=== PATIENT | female | born 1950 | race Caucasian/White ===

== ENCOUNTER 2019-01-04 14:37 | Emergency (ER) | payer MEDICARE, BC, SELFPAY ==
[2019-01-04 14:40] VITALS: BP 145/105; PULSE 116; RESP 20; TEMP 36.7; O2SAT 94
--- NOTE | 2019-01-04 14:44 | DI.RAD.S_ITS ---
PROCEDURE: XR CHEST 1V INDICATIONS: soa, weakness TECHNIQUE: One view of the chest was acquired. COMPARISON: Located Within [facility], , CHEST 2 VIEW, 11/28/2014, 10:57. FINDINGS: Surgical changes and devices: None. Lungs and pleura: Lungs are clear. No pleural effusions or pneumothorax. Mediastinum: Mediastinal contours appear normal. Heart size is enlarged. Bones and chest wall: No suspicious bony lesions. Overlying soft tissues appear unremarkable. IMPRESSION: No acute pulmonary pathology. Dictated by: Wayne Alonso M.D. on 01/04/2019 at 15:34 Approved by: Wayne Alonso M.D. on 01/04/2019 at 15:41
[2019-01-04 16:23] LABS: Add Manual Diff / Slide Review NO; Basophils Absolute Auto 100 /uL (0-100); Basophils Percent Auto 0.4 % (0-2); Eosinophils Absolute Auto 0 /uL (0-450); Eosinophils Percent Auto 0.3 % (2-4); Hematocrit 50.7 % (36-46); Hemoglobin 16.4 g/dL (12.0-16.0); Lymphocytes Absolute Auto 1500 /uL (1100-4500); Lymphocytes Percent Auto 11.2 % (25-40); Mean Corpuscular HGB Conc 32.4 % (30-36); Mean Corpuscular Hemoglobin 27.9 PG (26-34); Mean Corpuscular Volume 86.2 fL (80-100); Monocytes Absolute Auto 900 /uL (0-900); Monocytes Percent Auto 6.7 % (3-14); Neutrophils Absolute Auto 10600 /uL (1500-7000); Neutrophils Percent Auto 81.4 % (50-75); Platelet Count 103 X10^3/uL (150-400); Red Blood Cell Count 5.88 X10^6/uL (4.0-5.2); Red Cell Distribution Width 13.6 % (11.6-14.8); White Blood Cell Count 13.1 X10^3/uL (4.5-11.0)
--- NOTE | 2019-01-04 16:28 | ED.WEAKNESS ---
HPI - Weakness General Chief complaint: Weakness Stated complaint: WEAK Time Seen by Provider: 01/04/19 15:10 Source: patient and family Mode of arrival: ambulatory Limitations: no limitations History of Present Illness HPI Narrative: Patient comes emergency department complaining of shortness of breath and fatigue for the last couple of days. Neither she nor her family can specify whether this came on suddenly or gradually, although notes that the patient seems to have been ?slowing down? for the last week. Patient states that she self d/c'd her antihypertensives a year ago, and has not been to the doctor since. She cannot really give an answer as to why she did this. Patient denies any chest pain, fever, nausea, vomiting, leg swelling, or calf pain. she has no known personal or family history of cardiac issues or of DVT. Patient states she is not known to have any medical problems other than the high blood pressure, but that she does not really see a doctor regularly. Patient denies smoking or alcohol use. Related Data Home Medications Medication Instructions Recorded Confirmed No Known Home Medications 01/04/19 01/04/19 Allergies Allergy/AdvReac Type Severity Reaction Status Date / Time No Known Drug Allergies Allergy Verified 01/04/19 16:11 Review of Systems Constitutional Denies chills, Reports fatigue, Denies fever(s), Denies lethargy and Denies weakness Eyes Denies change in vision, Denies eye discharge, Denies irritation and Denies loss of vision ENT Ears, Nose, Mouth, and Throat: Denies change in voice, Denies neck pain and Denies sore throat Cardiovascular Denies chest pain, Denies irregular heart rhythm, Denies lightheadedness, Denies palpitations, Reports dyspnea, Reports dyspnea on exertion and Denies orthopnea Respiratory Denies cough, Reports dyspnea, Reports dyspnea on exertion and Denies wheezing Gastrointestinal Gastrointestinal: Denies abdominal pain, Denies change in bowel habits, Denies diarrhea, Denies nausea and Denies vomiting Genitourinary Denies hematuria, Denies flank pain, Denies urinary incontinence and Denies urinary urgency Musculoskeletal Denies neck pain Integumentary/Breasts Denies pruritus, Denies erythema, Denies rash and Denies wounds Neurologic Denies confusion, Denies loss of vision and Denies weakness Psychiatric Denies anxiety, Denies confusion, Denies depression, Denies homicidal ideation and Denies suicidal ideation Endocrine Reports fatigue and Denies palpitations Hematologic/Lymphatic Denies easy bruising Allergic/Immunologic Denies wheezing [facility] Medical History (Updated 01/04/19 @ 20:51 by Denise Solis MD) Uncontrolled hypertension (Acute) Surgical History No pertinent past surgical history (Acute) Social History Smoking Status: Never smoker Social History Smoking Status: Never smoker Exam Initial Vital Signs Initial Vital Signs: Vital Signs Temperature 98.1 F 01/04/19 14:40 Pulse Rate 116 H 01/04/19 14:40 Respiratory Rate 20 01/04/19 14:40 Blood Pressure 145/105 H 01/04/19 14:40 Pulse Oximetry 94 01/04/19 14:40 Const General: cooperative and well developed Nutritional Appearance: well nourished Orientation: alert, awake, oriented x3 and not confused [facility] Head: normocephalic and atraumatic Ears: external ears normal Nose: external nose normal and No nasal discharge Face and sinus: face symmetric and No dry mucous membranes Mouth: oral mucosae normal and moist mucous membranes Teeth and gingiva: dentition normal Eyes General: appearance normal, both eyes and all related structures Eyelids: eyelids normal Conjunctivae: conjunctivae normal Sclera: sclerae normal Pupils: PERRL EOM: EOM intact bilaterally Neck Neck: normal visual inspection, trachea midline, No lymphadenopathy, No midline deformity and No JVD Lymphatic: No lymphedema Chest Chest: normal inspection of the chest Resp Effort & Inspection: normal respiratory effort, able to speak in complete sentences, no respiratory distress and no use of accessory muscles Auscultation: clear to auscultation bilaterally, no rales, no rhonchi and no wheezes Cardio Rate: tachycardic Rhythm: regular rhythm Heart Sounds: no click, no gallops, no murmurs and no rubs Pulses: normal peripheral pulses GI Inspection: non-distended Palpation: soft, no hepatosplenomegaly, No guarding, No pulsatile mass and No tender Auscultation: normal bowel sounds Back/Spine/Pelvis Back: No CVA tenderness Cervical Spine: cervical ROM normal and No pain with cervical ROM Thoracic/Lumbar Spine: thoracic and lumbar spine normal to inspection Skin General: no rashes or lesions noted, No jaundice and No petechiae Neuro General: alert, oriented x3, gait normal and no focal motor deficits Speech: speech normal Extrem General: full ROM, no pedal edema and no calf tenderness Psych Appearance: well kempt Mental Status: mental status grossly normal Attitude: cooperative Thought Content: normal and suicidality Judgment: judgment good Course Course Narrative: I was concerned about the patient's degree of dyspnea and her tachycardia, especially since when the patient ambulated to the bathroom here in the emergency department she was extremely dyspneic. Patient was worked up extensively with laboratory studies, EKG, and chest x-ray. D-dimer was found to be over 3000, and I did order a CTA of thorax. This showed a saddle embolism involving the left and right pulmonary arteries, and also showed a potential, circumesophageal mass. I did go and speak with the patient and her family regarding the findings, and the seriousness of them. I explained to the patient that she would need to be transferred to a facility with an interventional specialty team that can retrieve the clot. The patient expressed understanding, as did her . I ordered an IV bolus of heparin, as well as a heparin drip, and began the process of attempting to arrange transfer emergently. The patient, other than mild tachycardia, had been stable, and was without hypotension in the emergency department, and in fact, had significantly elevated blood pressures in the 150s to 160s over 110's. Her oxygen saturations had been in the mid 90s on room air, and given all of the above, I did not feel that emergent tPA was indicated at this time. Nursing staff did summon me to the patient's room, stating that as the patient was beginning to get her heparin, she had suddenly began to complain of severe shortness of breath, and appeared to have labored respirations. I did immediately go to the patient's room, where I found her to have labored respirations and appear is mildly anxious. Heart was still tachycardic and lungs were clear, but as I was reexamined the patient, she did lose consciousness and respirations became agonal as heart rate began to become bradycardic. A code blue was called and patient was found to be in PEA. CPR was initiated at the calling of the code blue. TPA was emergently ordered at standard dosing when the pharmacist arrived, and patient was also given a mg of epinephrine. TPA was pushed emergently upon its arrival. Patient had been bagged for respirations initially, and preparations were being made to intubate, when the patient regained her pulse, and did also regain consciousness. She was not lucid, but was able to speak a little. Patient's heart rate was tachycardic in the 150s after epinephrine, and lungs were clear. No new murmur was appreciated. patient was making good respiratory effort on her own, but she was found to remain cyanotic, and I felt she should still be intubated. She was given 18 mg of etomidate, as well as 100 mg of succinylcholine, and was intubated with a 7.5 ET tube by the anesthesiologist, who had arrived. At that point in time Dr. Stovall, personal protection specialist from [facility], did call back and I discussed the case with him. He affirmed appropriateness of management and plan, did accept the patient in transfer, but as we were finishing discussing the case, the patient did begin to become bradycardic again, and went back into PEA. Resuscitation was restarted at 7:06 p.m., with CPR and IV epinephrine. The patient had become hypotensive just before this, and the placement manager had specified his preference for Levophed. This was started during the resuscitation attempt, and patient did receive IV epinephrine 1 mg every 2 minutes. Patient continued to be in PEA throughout the entire resuscitation attempt. She was cyanotic and while ultrasound initially showed some cardiac activity, repeat ultrasound well into the resuscitation attempts showed no further cardiac movement. The family arrived and did observe the final resuscitation attempts. I did explain to them the grave condition the patient was in, and the fact that extensive resuscitation attempts, including emergent dissolution of the clot, had been unsuccessful. After Levophed infusion, emergent tPa, ongoing CPR, and multiple doses of epinephrine, the time of was pronounced at 7:24 p.m. Orders Ordered: ED Orders 01/04/19 14:44 Chest [XR chest 1V] Stat EKG-12 Lead Stat 01/04/19 16:05 Complete Blood Count AUTO DIFF Stat Comprehensive Metabolic Panel Stat D Dimer Stat Troponin & CK Cardiac Panel Stat 01/04/19 16:19 Urine Culture Stat Urine Microscopic Stat 01/04/19 17:27 CT angio chest PE protocol Stat Heparin Sodium/Dextrose (Heparin Drip) 25,000 unit in 500 mls @ 28.576 mls/hr IV CONT MERARY; Protocol Last Admin: 01/04/19 18:31 Dose: 18 units/kg/hr, 28.576 mls/hr Discontinued Medications Al Hydrox/Mg Hydrox/Simethicone 20 ml/ Lidocaine HCl 15 ml 0 ml PO NOW ONE Stop: 01/04/19 18:26 Heparin Sodium (Porcine) (Heparin) 6,400 unit 80 unit/kg (6400 unit) IV NOW ONE Stop: 01/04/19 18:17 Last Admin: 01/04/19 18:34 Dose: 6,400 unit Sodium Chloride (Normal Saline 0.9%) 1,000 mls @ 1,000 mls/hr IV BOLUS ONE Stop: 01/04/19 17:27 Last Admin: 01/04/19 17:18 Dose: 1,000 mls/hr Morphine Sulfate (Morphine) 4 mg IV NOW ONE Stop: 01/04/19 18:26 Vital Signs - 8 hr 01/04/19 14:40 01/04/19 16:30 Temperature 98.1 F Pulse Rate 116 H 111 H Respiratory Rate 20 22 Blood Pressure 145/105 H Blood Pressure [Right Arm] 161/124 H Pulse Oximetry 94 95 MDM - Weakness Medical Records Attestation: I reviewed the patient's medical records. Lab Data Attestation: I reviewed the patient's lab results. Result diagrams: 01/04/19 16:05 01/04/19 16:05 Lab Results 01/04/19 01/04/19 01/04/19 Range/Units 16:05 16:05 16:05 WBC 13.1 H (4.5-11.0) X10^3/uL RBC 5.88 H (4.0-5.2) X10^6/uL Hgb 16.4 H (12.0-16.0) g/dL Hct 50.7 H (36-46) % MCV 86.2 (80-100) fL MCH 27.9 (26-34) PG MCHC 32.4 (30-36) % RDW 13.6 (11.6-14.8) % Plt Count 103 L (150-400) X10^3/uL Neut % (Auto) 81.4 H (50-75) % Lymph % (Auto) 11.2 L (25-40) % Stephens % (Auto) 6.7 (3-14) % Eos % (Auto) 0.3 L (2-4) % Baso % (Auto) 0.4 (0-2) % Neut # (Auto) 77294 H (0771-5678) /uL Lymph # (Auto) 1500 (8839-1259) /uL Stephens # (Auto) 900 (0-900) /uL Eos # (Auto) 0 (0-450) /uL Baso # (Auto) 100 (0-100) /uL D-Dimer 3229 H (<230) ng/mL Sodium 137 (137-145) mmol/L Potassium 3.8 (3.4-5.1) mmol/L Chloride 100 (98-107) mmol/L Carbon Dioxide 23 (22-32) mmol/L BUN 31 H (7-17) mg/dL Creatinine 0.90 (0.52-1.04) mg/dL Estimated GFR > 60.0 (>60) mL/min BUN/Creatinine Ratio 34.4 H (6-22) Glucose 326 H (80-110) mg/dL Calcium 9.7 (8.4-10.2) mg/dL Total Bilirubin 1.1 (0.2-1.3) mg/dL AST 26 (14-36) IU/L ALT 49 (9-52) IU/L Alkaline Phosphatase 173 H (38-126) U/L Total Creatine Kinase 47 (30-135) U/L CK-MB (CK-2) TNP CK-MB (CK-2) Rel Index TNP Troponin I 0.078 H (0.01-0.034) ng/mL Total Protein 7.8 (6.3-8.2) g/dL Albumin 4.5 (3.5-5.0) g/dL Globulin 3.3 (1.7-4.1) g/dL Albumin/Globulin Ratio 1.4 (1.0-2.8) Urine RBC (0-5/HPF) Urine WBC (0-5/HPF) Ur Squamous Epith Cells (0-5/HPF) Ur Transition Epith Cell (0-5/HPF) Urine Bacteria (None) Hyaline Casts (None) Urine Mucus (Negative) Ur Culture Indicated? 01/04/19 Range/Units 16:19 WBC (4.5-11.0) X10^3/uL RBC (4.0-5.2) X10^6/uL Hgb (12.0-16.0) g/dL Hct (36-46) % MCV (80-100) fL MCH (26-34) PG MCHC (30-36) % RDW (11.6-14.8) % Plt Count (150-400) X10^3/uL Neut % (Auto) (50-75) % Lymph % (Auto) (25-40) % Stephens % (Auto) (3-14) % Eos % (Auto) (2-4) % Baso % (Auto) (0-2) % Neut # (Auto) (6027-5550) /uL Lymph # (Auto) (1431-2200) /uL Stephens # (Auto) (0-900) /uL Eos # (Auto) (0-450) /uL Baso # (Auto) (0-100) /uL D-Dimer (<230) ng/mL Sodium (137-145) mmol/L Potassium (3.4-5.1) mmol/L Chloride (98-107) mmol/L Carbon Dioxide (22-32) mmol/L BUN (7-17) mg/dL Creatinine (0.52-1.04) mg/dL Estimated GFR (>60) mL/min BUN/Creatinine Ratio (6-22) Glucose (80-110) mg/dL Calcium (8.4-10.2) mg/dL Total Bilirubin (0.2-1.3) mg/dL AST (14-36) IU/L ALT (9-52) IU/L Alkaline Phosphatase (38-126) U/L Total Creatine Kinase (30-135) U/L CK-MB (CK-2) CK-MB (CK-2) Rel Index Troponin I (0.01-0.034) ng/mL Total Protein (6.3-8.2) g/dL Albumin (3.5-5.0) g/dL Globulin (1.7-4.1) g/dL Albumin/Globulin Ratio (1.0-2.8) Urine RBC 0-1/hpf (0-5/HPF) Urine WBC 10-30/hpf H (0-5/HPF) Ur Squamous Epith Cells 1-5 /hpf (0-5/HPF) Ur Transition Epith Cell 0-1/hpf (0-5/HPF) Urine Bacteria Many (>30) H (None) Hyaline Casts 1-5/lpf (None) Urine Mucus 2+ H (Negative) Ur Culture Indicated? Specimen cultured Imaging Data CT scan - chest: Radiologist's impression: PROCEDURE: CT ANGIO CHEST PE PROTOCOL INDICATIONS: dyspnea, d-dimer >3000 TECHNIQUE: After the administration of intravenous contrast, 2 mm thick sections acquired from the pulmonary apices to the posterior costophrenic angles. 3-dimensional maximum intensity projection (MIP) coronal and sagittal reformats were then acquired through the thorax. For radiation dose reduction, the following was used: automated exposure control, adjustment of mA and/or kV according to patient size. COMPARISON: None. FINDINGS: Image quality: Excellent. Pulmonary arteries: Extensive pulmonary embolus including a saddle embolism and right and left main pulmonary arteries as well as clot extending into right upper, right lower, left upper, and left lower lobe branches. Pulmonary outflow tract is slightly enlarged at 3.1 cm. Lungs and pleura: Lungs are clear. No pleural effusions or pneumothorax. Central and peripheral airways are patent. Mediastinum: The right cardiac chambers are dilated and there is mild intraventricular septal bowing. Mild left ventricular wall hypertrophy. No pericardial effusion. No bulky mediastinal adenopathy. At the level of the aortic arch, there is an expansile soft tissue mass measuring about 3.3 x 2.4 cm encompassing the esophagus. No proximal or distal esophageal dilatation. There is a moderate size esophageal hiatal hernia. A esophageal wall distally is also thickened. Bones and chest wall: No suspicious bony lesions. Ribs and thoracic spine appear intact throughout. Thyroid gland is normal. No axillary or supraclavicular adenopathy. Abdomen: Visualized upper abdominal solid organs appear normal in the early arterial phase of enhancement. IMPRESSION: 1. Extensive pulmonary emboli including a saddle embolus and bilateral main pulmonary artery emboli. 2. There is right heart strain. 3. Questionable proximal to mid-esophageal wall mass. 4. Moderate size hiatal hernia with questionable distal esophageal mass. 5. Findings discussed with Dr. Solis in the emergency room. Dictated by: Cathy Aponte M.D. on 01/04/2019 at 17:52 Approved by: Cathy Aponte M.D. on 01/04/2019 at 18:09 Chest x-ray: Radiologist's impression: [address] [id number] XRay Report Signed Patient: Gerda Roman LMR#: [id number] : 1Acct:[id number] Age/Sex: 68 / FDate of Service: 01/04/19 Loc: ED Accession Number: [id number] Procedure: XR chest 1V Ordering Provider: Denise Solis MD PROCEDURE: XR CHEST 1V INDICATIONS: soa, weakness TECHNIQUE: One view of the chest was acquired. COMPARISON: [facility], CHEST 2 VIEW, 11/28/2014, 10:57. FINDINGS: Surgical changes and devices: None. Lungs and pleura: Lungs are clear. No pleural effusions or pneumothorax. Mediastinum: Mediastinal contours appear normal. Heart size is enlarged. Bones and chest wall: No suspicious bony lesions. Overlying soft tissues appear unremarkable. IMPRESSION: No acute pulmonary pathology. Dictated by: Wayne Alonso M.D. on 01/04/2019 at 15:34 Approved by: Wayne Alonso M.D. on 01/04/2019 at 15:41 ECG Data Attestation: I personally reviewed and interpreted this ECG as follows: (See below) Interpretation: Twelve lead EKG performed January 04, 2019 at 2:52 p.m., as follows: Regular ventricular rhythm with a rate of 119 beats per minute Peer interval 161 milliseconds QRS duration 100 millisecond QTC interval [address] T wave changes Interpretation: Sinus tachycardia; possible left atrial enlargement; inferior myocardial infarction, probably old; abnormal EKG as interpreted by ED MD. Critical Care Time Critical Care Time: Yes Total Critical Care Time: 100 Attestation: Critical care time was necessary, due to grave condition of the patient and high probability of imminent deterioration and . Critical care time includes interviewing the patient, examining the patient, discussions with family members, discussions with consultants, ordering and reviewing laboratory studies, ordering and reviewing radiologic studies, ordering and reviewing EKG, assessing cardiac output and pulse oximetry repeatedly, resuscitation attempts, monitor interpretation, ordering interventions and re-evaluating the patient, and documentation. Critical care time is exclusive of separately billable procedures. Discharge Plan Departure Patient Disposition: Clinical Impression: Cardiopulmonary resuscitation (CPR)-only resuscitation status, Uncontrolled hypertension Saddle embolism of pulmonary artery Qualifiers: Chronicity: acute Acute cor pulmonale presence: with acute cor pulmonale Qualified Code(s): I26.02 - Saddle embolus of pulmonary artery with acute cor pulmonale
[2019-01-04 16:30] VITALS: BP 161/124; PULSE 111; RESP 22; O2SAT 95
[2019-01-04 16:30] LABS: Alanine Aminotransferase 49 IU/L (9-52); Albumin 4.5 g/dL (3.5-5.0); Albumin Globulin Ratio 1.4 (1.0-2.8); Alkaline Phosphatase 173 U/L (38-126); Aspartate Aminotransferase 26 IU/L (14-36); BUN Creatinine Ratio 34.4 (6-22); Bilirubin Total 1.1 mg/dL (0.2-1.3); Blood Urea Nitrogen 31 mg/dL (7-17); Calcium 9.7 mg/dL (8.4-10.2); Carbon Dioxide 23 mmol/L (22-32); Chloride 100 mmol/L (98-107); Creatine Kinase 47 U/L (30-135); Estimated Glomerular Filt Rate > 60.0 mL/min (>60); Globulin 3.3 g/dL (1.7-4.1); Glucose 326 mg/dL (80-110); HEMOLYSIS < 15 (0-50); Potassium 3.8 mmol/L (3.4-5.1); Sodium 137 mmol/L (137-145); Total Protein 7.8 g/dL (6.3-8.2)
[2019-01-04 16:34] LABS: D Dimer 3229 ng/mL (<230)
[2019-01-04 16:41] LABS: Troponin I 0.078 ng/mL (0.01-0.034)
--- NOTE | 2019-01-04 16:49 | ED_ITS ---
HPI - Weakness General Chief complaint: Weakness Stated complaint: WEAK Time Seen by Provider: 01/04/19 15:10 Source: patient and family Mode of arrival: ambulatory Limitations: no limitations History of Present Illness HPI Narrative: Patient comes emergency department complaining of shortness of breath and fatigue for the last couple of days. Neither she nor her family can specify whether this came on suddenly or gradually, although notes that the patient seems to have been ?slowing down? for the last week. Patient states that she self d/c'd her antihypertensives a year ago, and has not been to the doctor since. She cannot really give an answer as to why she did this. Patient denies any chest pain, fever, nausea, vomiting, leg swelling, or calf pain. she has no known personal or family history of cardiac issues or of DVT. Patient states she is not known to have any medical problems other than the high blood pressure, but that she does not really see a doctor regularly. Patient denies smoking or alcohol use. Related Data Home Medications Medication Instructions Recorded Confirmed No Known Home Medications 01/04/19 01/04/19 Allergies Allergy/AdvReac Type Severity Reaction Status Date / Time No Known Drug Allergies Allergy Verified 01/04/19 16:11 Review of Systems Constitutional Denies chills, Reports fatigue, Denies fever(s), Denies lethargy and Denies weakness Eyes Denies change in vision, Denies eye discharge, Denies irritation and Denies loss of vision ENT Ears, Nose, Mouth, and Throat: Denies change in voice, Denies neck pain and Denies sore throat Cardiovascular Denies chest pain, Denies irregular heart rhythm, Denies lightheadedness, Denies palpitations, Reports dyspnea, Reports dyspnea on exertion and Denies orthopnea Respiratory Denies cough, Reports dyspnea, Reports dyspnea on exertion and Denies wheezing Gastrointestinal Gastrointestinal: Denies abdominal pain, Denies change in bowel habits, Denies d iarrhea, Denies nausea and Denies vomiting Genitourinary Denies hematuria, Denies flank pain, Denies urinary incontinence and Denies urinary urgency Musculoskeletal Denies neck pain Integumentary/Breasts Denies pruritus, Denies erythema, Denies rash and Denies wounds Neurologic Denies confusion, Denies loss of vision and Denies weakness Psychiatric Denies anxiety, Denies confusion, Denies depression, Denies homicidal ideation and Denies suicidal ideation Endocrine Reports fatigue and Denies palpitations Hematologic/Lymphatic Denies easy bruising Allergic/Immunologic Denies wheezing [facility] Medical History (Updated 01/04/19 @ 20:51 by Denise Solis MD) Uncontrolled hypertension (Acute) Surgical History No pertinent past surgical history (Acute) Social History Smoking Status: Never smoker Social History Smoking Status: Never smoker Exam Initial Vital Signs Initial Vital Signs: Vital Signs Temperature 98.1 F 01/04/19 14:40 Pulse Rate 116 H 01/04/19 14:40 Respiratory Rate 20 01/04/19 14:40 Blood Pressure 145/105 H 01/04/19 14:40 Pulse Oximetry 94 01/04/19 14:40 Const General: cooperative and well developed Nutritional Appearance: well nourished Orientation: alert, awake, oriented x3 and not confused [facility] Head: normocephalic and atraumatic Ears: external ears normal Nose: external nose normal and No nasal discharge Face and sinus: face symmetric and No dry mucous membranes Mouth: oral mucosae normal and moist mucous membranes Teeth and gingiva: dentition normal Eyes General: appearance normal, both eyes and all related structures Eyelids: eyelids normal Conjunctivae: conjunctivae normal Sclera: sclerae normal Pupils: PERRL EOM: EOM intact bilaterally Neck Neck: normal visual inspection, trachea midline, No lymphadenopathy, No midline deformity and No JVD Lymphatic: No lymphedema Chest Chest: normal inspection of the chest Resp Effort & Inspection: normal respiratory effort, able to speak in complete sentences, no respiratory distress and no use of accessory muscles Auscultation: clear to auscultation bilaterally, no rales, no rhonchi and no wheezes Cardio Rate: tachycardic Rhythm: regular rhythm Heart Sounds: no click, no gallops, no murmurs and no rubs Pulses: normal peripheral pulses GI Inspection: non-distended Palpation: soft, no hepatosplenomegaly, No guarding, No pulsatile mass and No tender Auscultation: normal bowel sounds Back/Spine/Pelvis Back: No CVA tenderness Cervical Spine: cervical ROM normal and No pain with cervical ROM Thoracic/Lumbar Spine: thoracic and lumbar spine normal to inspection Skin General: no rashes or lesions noted, No jaundice and No petechiae Neuro General: alert, oriented x3, gait normal and no focal motor deficits Speech: speech normal Extrem General: full ROM, no pedal edema and no calf tenderness Psych Appearance: well kempt Mental Status: mental status grossly normal Attitude: cooperative Thought Content: normal and suicidality Judgment: judgment good Course Course Narrative: I was concerned about the patient's degree of dyspnea and her tachycardia, especially since when the patient ambulated to the bathroom here in the emergency department she was extremely dyspneic. Patient was worked up extensively with laboratory studies, EKG, and chest x-ray. D-dimer was found to be over 3000, and I did order a CTA of thorax. This showed a saddle embolism involving the left and right pulmonary arteries, and also showed a potential, circumesophageal mass. I did go and speak with the patient and her family regarding the findings, and the seriousness of them. I explained to the patient that she would need to be transferred to a facility with an interventional specialty team that can retrieve the clot. The patient expressed understanding, as did her . I ordered an IV bolus of heparin, as well as a heparin drip, and began the process of attempting to arrange transfer emergently. The patient, other than mild tachycardia, had been stable, and was without hypotension in the emergency department, and in fact, had significantly elevated blood pressures in the 150s to 160s over 110's. Her oxygen saturations had been in the mid 90s on room air, and given all of the above, I did not feel that emergent tPA was indicated at this time. Nursing staff did summon me to the patient's room, stating that as the patient was beginning to get her heparin, she had suddenly began to complain of severe shortness of breath, and appeared to have labored respirations. I did immediately go to the patient's room, where I found her to have labored respirations and appear is mildly anxious. Heart was still tachycardic and lungs were clear, but as I was reexamined the patient, she did lose consciousness and respirations became agonal as heart rate began to become bradycardic. A code blue was called and patient was found to be in PEA. CPR was initiated at the calling of the code blue. TPA was emergently ordered at standard dosing when the pharmacist arrived, and patient was also given a mg of epinephrine. TPA was pushed emergently upon its arrival. Patient had been bagged for respirations initially, and preparations were being made to intubate, when the patient regained her pulse, and did also regain consciousness. She was not lucid, but was able to speak a little. Patient's heart rate was tachycardic in the 150s after epinephrine, and lungs were clear. No new murmur was appreciated. patient was making good respiratory effort on her own, but she was found to remain cyanotic, and I felt she should still be intubated. She was given 18 mg of etomidate, as well as 100 mg of succinylcholine, and was intubated with a 7.5 ET tube by the anesthesiologist, who had arrived. At that point in time Dr. Stovall, neuro psych sales specialist from [facility], did call back and I discussed the case with him. He affirmed appropriateness of management and plan, did accept the patient in transfer, but as we were finishing discussing the case, the patient did begin to become bradycardic again, and went back into PEA. Resuscitation was restarted at 7:06 p.m., with CPR and IV epinephrine. The patient had become hypotensive just before this, and the mushroom growing supervisor had specified his preference for Levophed. This was started during the resuscitation attempt, and patient did receive IV epinephrine 1 mg every 2 minutes. Patient continued to be in PEA throughout the entire resuscitation attempt. She was cyanotic and while ultrasound initially showed some cardiac activity, repeat ultrasound well into the resuscitation attempts showed no further cardiac movement. The family arrived and did observe the final resuscitation attempts. I did explain to them the grave condition the patient was in, and the fact that extensive resuscitation attempts, including emergent dissolution of the clot, had been unsuccessful. After Levophed infusion, emergent tPa, ongoing CPR, and multiple doses of epinephrine, the time of was pronounced at 7:24 p.m. Orders Ordered: ED Orders 01/04/19 14:44 Chest [XR chest 1V] Stat EKG-12 Lead Stat 01/04/19 16:05 Complete Blood Count AUTO DIFF Stat Comprehensive Metabolic Panel Stat D Dimer Stat Troponin & CK Cardiac Panel Stat 01/04/19 16:19 Urine Culture Stat Urine Microscopic Stat 01/04/19 17:27 CT angio chest PE protocol Stat Heparin Sodium/Dextrose (Heparin Drip) 25,000 unit in 500 mls @ 28.576 mls/hr IV CONT MERARY; Protocol Last Admin: 01/04/19 18:31 Dose: 18 units/kg/hr, 28.576 mls/hr Discontinued Medications Al Hydrox/Mg Hydrox/Simethicone 20 ml/ Lidocaine HCl 15 ml 0 ml PO NOW ONE Stop: 01/04/19 18:26 Heparin Sodium (Porcine) (Heparin) 6,400 unit 80 unit/kg (6400 unit) IV NOW ONE Stop: 01/04/19 18:17 Last Admin: 01/04/19 18:34 Dose: 6,400 unit Sodium Chloride (Normal Saline 0.9%) 1,000 mls @ 1,000 mls/hr IV BOLUS ONE Stop: 01/04/19 17:27 Last Admin: 01/04/19 17:18 Dose: 1,000 mls/hr Morphine Sulfate (Morphine) 4 mg IV NOW ONE Stop: 01/04/19 18:26 Vital Signs - 8 hr 01/04/19 14:40 01/04/19 16:30 Temperature 98.1 F Pulse Rate 116 H 111 H Respiratory Rate 20 22 Blood Pressure 145/105 H Blood Pressure [Right Arm] 161/124 H Pulse Oximetry 94 95 MDM - Weakness Medical Records Attestation: I reviewed the patient's medical records. Lab Data Attestation: I reviewed the patient's lab results. Result diagrams: 01/04/19 16:05 01/04/19 16:05 Lab Results 01/04/19 01/04/19 01/04/19 Range/Units 16:05 16:05 16:05 WBC 13.1 H (4.5-11.0) X10^3/uL RBC 5.88 H (4.0-5.2) X10^6/uL Hgb 16.4 H (12.0-16.0) g/dL Hct 50.7 H (36-46) % MCV 86.2 (80-100) fL MCH 27.9 (26-34) PG MCHC 32.4 (30-36) % RDW 13.6 (11.6-14.8) % Plt Count 103 L (150-400) X10^3/uL Neut % (Auto) 81.4 H (50-75) % Lymph % (Auto) 11.2 L (25-40) % [place] % (Auto) 6.7 (3-14) % Eos % (Auto) 0.3 L (2-4) % Baso % (Auto) 0.4 (0-2) % Neut # (Auto) 28571 H (6031-8887) /uL Lymph # (Auto) 1500 (2635-7275) /uL [place] # (Auto) 900 (0-900) /uL Eos # (Auto) 0 (0-450) /uL Baso # (Auto) 100 (0-100) /uL D-Dimer 3229 H (<230) ng/mL Sodium 137 (137-145) mmol/L Potassium 3.8 (3.4-5.1) mmol/L Chloride 100 (98-107) mmol/L Carbon Dioxide 23 (22-32) mmol/L BUN 31 H (7-17) mg/dL Creatinine 0.90 (0.52-1.04) mg/dL Estimated GFR > 60.0 (>60) mL/min BUN/Creatinine Ratio 34.4 H (6-22) Glucose 326 H (80-110) mg/dL Calcium 9.7 (8.4-10.2) mg/dL Total Bilirubin 1.1 (0.2-1.3) mg/dL AST 26 (14-36) IU/L ALT 49 (9-52) IU/L Alkaline Phosphatase 173 H (38-126) U/L Total Creatine Kinase 47 (30-135) U/L CK-MB (CK-2) TNP CK-MB (CK-2) Rel Index TNP Troponin I 0.078 H (0.01-0.034) ng/mL Total Protein 7.8 (6.3-8.2) g/dL Albumin 4.5 (3.5-5.0) g/dL Globulin 3.3 (1.7-4.1) g/dL Albumin/Globulin Ratio 1.4 (1.0-2.8) Urine RBC (0-5/HPF) Urine WBC (0-5/HPF) Ur Squamous Epith Cells (0-5/HPF) Ur Transition Epith Cell (0-5/HPF) Urine Bacteria (None) Hyaline Casts (None) Urine Mucus (Negative) Ur Culture Indicated? 01/04/19 Range/Units 16:19 WBC (4.5-11.0) X10^3/uL RBC (4.0-5.2) X10^6/uL Hgb (12.0-16.0) g/dL Hct (36-46) % MCV (80-100) fL MCH (26-34) PG MCHC (30-36) % RDW (11.6-14.8) % Plt Count (150-400) X10^3/uL Neut % (Auto) (50-75) % Lymph % (Auto) (25-40) % [place] % (Auto) (3-14) % Eos % (Auto) (2-4) % Baso % (Auto) (0-2) % Neut # (Auto) (8843-4507) /uL Lymph # (Auto) (8753-4153) /uL [place] # (Auto) (0-900) /uL Eos # (Auto) (0-450) /uL Baso # (Auto) (0-100) /uL D-Dimer (<230) ng/mL Sodium (137-145) mmol/L Potassium (3.4-5.1) mmol/L Chloride (98-107) mmol/L Carbon Dioxide (22-32) mmol/L BUN (7-17) mg/dL Creatinine (0.52-1.04) mg/dL Estimated GFR (>60) mL/min BUN/Creatinine Ratio (6-22) Glucose (80-110) mg/dL Calcium (8.4-10.2) mg/dL Total Bilirubin (0.2-1.3) mg/dL AST (14-36) IU/L ALT (9-52) IU/L Alkaline Phosphatase (38-126) U/L Total Creatine Kinase (30-135) U/L CK-MB (CK-2) CK-MB (CK-2) Rel Index Troponin I (0.01-0.034) ng/mL Total Protein (6.3-8.2) g/dL Albumin (3.5-5.0) g/dL Globulin (1.7-4.1) g/dL Albumin/Globulin Ratio (1.0-2.8) Urine RBC 0-1/hpf (0-5/HPF) Urine WBC 10-30/hpf H (0-5/HPF) Ur Squamous Epith Cells 1-5 /hpf (0-5/HPF) Ur Transition Epith Cell 0-1/hpf (0-5/HPF) Urine Bacteria Many (>30) H (None) Hyaline Casts 1-5/lpf (None) Urine Mucus 2+ H (Negative) Ur Culture Indicated? Specimen cultured Imaging Data CT scan - chest: Radiologist's impression: PROCEDURE: CT ANGIO CHEST PE PROTOCOL INDICATIONS: dyspnea, d-dimer >3000 TECHNIQUE: After the administration of intravenous contrast, 2 mm thick sections acquired from the pulmonary apices to the posterior costophrenic angles. 3-dimensional maximum intensity projection (MIP) coronal and sagittal reformats were then acquired through the thorax. For radiation dose reduction, the following was used: automated exposure control, adjustment of mA and/or kV according to patient size. COMPARISON: None. FINDINGS: Image quality: Excellent. Pulmonary arteries: Extensive pulmonary embolus including a saddle embolism and right and left main pulmonary arteries as well as clot extending into right upper, right lower, left upper, and left lower lobe branches. Pulmonary outflow tract is slightly enlarged at 3.1 cm. Lungs and pleura: Lungs are clear. No pleural effusions or pneumothorax. Central and peripheral airways are patent. Mediastinum: The right cardiac chambers are dilated and there is mild int raventricular septal bowing. Mild left ventricular wall hypertrophy. No pericardial effusion. No bulky mediastinal adenopathy. At the level of the aortic arch, there is an expansile soft tissue mass measuring about 3.3 x 2.4 cm encompassing the esophagus. No proximal or distal esophageal dilatation. There is a moderate size esophageal hiatal hernia. A esophageal wall distally is also thickened. Bones and chest wall: No suspicious bony lesions. Ribs and thoracic spine appear intact throughout. Thyroid gland is normal. No axillary or supraclavicular adenopathy. Abdomen: Visualized upper abdominal solid organs appear normal in the early arterial phase of enhancement. IMPRESSION: 1. Extensive pulmonary emboli including a saddle embolus and bilateral main pulmonary artery emboli. 2. There is right heart strain. 3. Questionable proximal to mid-esophageal wall mass. 4. Moderate size hiatal hernia with questionable distal esophageal mass. 5. Findings discussed with Dr. Solis in the emergency room. Dictated by: Cathy Aponte M.D. on 01/04/2019 at 17:52 Approved by: Cathy Aponte M.D. on 01/04/2019 at 18:09 Chest x-ray: Radiologist's impression: [address] [address] XRay Report Signed Patient: Gerda Roman LMR#: [id number] : [id number]:[id number] Age/Sex: 68 / FDate of Service: 01/04/19 Loc: ED Accession Number: [id number] Procedure: XR chest 1V Ordering Provider: Denise Solis MD PROCEDURE: XR CHEST 1V INDICATIONS: soa, weakness TECHNIQUE: One view of the chest was acquired. COMPARISON: [facility], CHEST 2 VIEW, 11/28/2014, 10:57. FINDINGS: Surgical changes and devices: None. Lungs and pleura: Lungs are clear. No pleural effusions or pneumothorax. Mediastinum: Mediastinal contours appear normal. Heart size is enlarged. Bones and chest wall: No suspicious bony lesions. Overlying soft tissues appear unremarkable. IMPRESSION: No acute pulmonary pathology. Dictated by: Wayne Alonso M.D. on 01/04/2019 at 15:34 Approved by: Wayne Alonso M.D. on 01/04/2019 at 15:41 ECG Data Attestation: I personally reviewed and interpreted this ECG as follows: (See below) Interpretation: Twelve lead EKG performed January 04, 2019 at 2:52 p.m., as follows: Regular ventricular rhythm with a rate of 119 beats per minute Peer interval 161 milliseconds QRS duration 100 millisecond QTC interval [address] T wave changes Interpretation: Sinus tachycardia; possible left atrial enlargement; inferior myocardial infarction, probably old; abnormal EKG as interpreted by ED MD. Critical Care Time Critical Care Time: Yes Total Critical Care Time: 100 Attestation: Critical care time was necessary, due to grave condition of the patient and high probability of imminent deterioration and . Critical care time includes interviewing the patient, examining the patient, discussions with family members, discussions with consultants, ordering and reviewing laboratory studies, ordering and reviewing radiologic studies, ordering and reviewing EKG, assessing cardiac output and pulse oximetry repeatedly, resuscitation attempts, monitor interpretation, ordering interventions and re-evaluating the patient, and documentation. Critical care time is exclusive of separately billable procedures. Discharge Plan Departure Patient Disposition: Clinical Impression: Cardiopulmonary resuscitation (CPR)-only resuscitation status, Uncontrolled hypertension Saddle embolism of pulmonary artery Qualifiers: Chronicity: acute Acute cor pulmonale presence: with acute cor pulmonale Qualified Code(s): I26.02 - Saddle embolus of pulmonary artery with acute cor pulmonale
[2019-01-04 16:57] LABS: Bacteria Urine Many (>30); Culture Indicated Urine Specimen Cultured; Hyaline Casts Urine 1-5/LPF; Mucus Urine 2+ (Negative); RBC Urine 0-1/HPF (0-5/HPF); Squamous Epithelial Cell Urine 1-5 /HPF (0-5/HPF); Transitional Epi Cells Urine 0-1/HPF (0-5/HPF); WBC Urine 10-30/HPF (0-5/HPF)
[2019-01-04] MEDS: SODIUM CHLORIDE 0.9% 1,000 ML 1000 ML IV (17:18)
--- NOTE | 2019-01-04 17:27 | DI.CT.S_ITS ---
PROCEDURE: CT ANGIO CHEST PE PROTOCOL INDICATIONS: dyspnea, d-dimer >3000 TECHNIQUE: After the administration of intravenous contrast, 2 mm thick sections acquired from the pulmonary apices to the posterior costophrenic angles. 3-dimensional maximum intensity projection (MIP) coronal and sagittal reformats were then acquired through the thorax. For radiation dose reduction, the following was used: automated exposure control, adjustment of mA and/or kV according to patient size. COMPARISON: None. FINDINGS: Image quality: Excellent. Pulmonary arteries: Extensive pulmonary embolus including a saddle embolism and right and left main pulmonary arteries as well as clot extending into right upper, right lower, left upper, and left lower lobe branches. Pulmonary outflow tract is slightly enlarged at 3.1 cm. Lungs and pleura: Lungs are clear. No pleural effusions or pneumothorax. Central and peripheral airways are patent. Mediastinum: The right cardiac chambers are dilated and there is mild intraventricular septal bowing. Mild left ventricular wall hypertrophy. No pericardial effusion. No bulky mediastinal adenopathy. At the level of the aortic arch, there is an expansile soft tissue mass measuring about 3.3 x 2.4 cm encompassing the esophagus. No proximal or distal esophageal dilatation. There is a moderate size esophageal hiatal hernia. A esophageal wall distally is also thickened. Bones and chest wall: No suspicious bony lesions. Ribs and thoracic spine appear intact throughout. Thyroid gland is normal. No axillary or supraclavicular adenopathy. Abdomen: Visualized upper abdominal solid organs appear normal in the early arterial phase of enhancement. IMPRESSION: 1. Extensive pulmonary emboli including a saddle embolus and bilateral main pulmonary artery emboli. 2. There is right heart strain. 3. Questionable proximal to mid-esophageal wall mass. 4. Moderate size hiatal hernia with questionable distal esophageal mass. 5. Findings discussed with Dr. Solis in the emergency room. Dictated by: Cathy Aponte M.D. on 01/04/2019 at 17:52 Approved by: Cathy Aponte M.D. on 01/04/2019 at 18:09
[2019-01-04] MEDS: HEPARIN DRIP 25,000 UNIT/500 ML IV.SOLN 28.576 UNIT IV (18:31)
[2019-01-04] MEDS: HEPARIN 5,000 UNIT/ML VIAL 6400 UNIT IV (18:34)
--- NOTE | 2019-01-04 19:06 | PM.PROC.1 ---
Procedures Date/Time Date of procedure: 01/04/19 Time of procedure: 19:08 Intubation Time out performed: Yes Sedative: etomidate Mg given: 18 Paralytic: succinylcholine (first dose 100mg; followed by 60mg due to mandibular clenching) Mg given: 160 Laryngoscope: Pinedo (Pinedo 2) ET tube size: 7.5 (with stylette) Tube secured depth (cm): 21 Tube secured location: teeth (front teeth) Tube placement confirmation: visualized tube passing through cords (MP 2 view, easy; cricoid pressure held), equal breath sounds bilaterally and confirmation by capnometry Patient tolerated procedure: no complications Intubation complications: none Additional comments: Patient presented to ED in distress. Diagnosis of saddle embolus made and patient unable to maintain oxygenation with non-rebreather bag. Patient intubated without complication and with improvement in oxygenation.
--- NOTE | 2019-01-04 19:56 | PC.NURSE ---
1840 Family called RN into room, patient expressing increase SOB. Increase work of breath noted, MD called to bedside. patient became unresponsive CODE Called. Compressions started. See CODE SHEET FOR FURTHER DOCUMENTATION
--- NOTE | 2019-01-04 19:57 | CM.SWNOTE ---
ED LATHE WINDER Note PERMACULTURE DESIGNER was asked to be present with family by PA when code was occurring. Provided support to pt's and two adult children. Pt's son and daughter were very supportive towards father. Several times sonLazarus stated we've got this Pt's expressed concerns that he did not know how he would manage if did not pull through. They were able to get a heart beat; pt was intubated, but then another code was called. Pt's and family were present when the code was called. LATHE WINDER was present with family and offered support of tissues, water and to call family members if desired. Pt and her have been for over 50 years. They have a son and daughter and two grandchildren ages 17 and 12. LATHE WINDER remained with family in the [place] area, and provided a caring, encouraging presence to the immediate family and the [id number]. Several times LATHE WINDER validated the unreality of the situation as members of the family spoke of it feeling unreal and that this cannot be happening. This is a very close caring family. Pt's will be supported by his family and was assured by them that he will not be alone. No further LATHE WINDER needs n oted as family left the hospital after saying their goodbyes to patient.
--- NOTE | 2019-01-04 22:50 | PC.NURSE ---
After hearing from Yoselyn at tissue /organ procurement,dispostion was to [place] [facility] where remains will be cooled until procurement decision can be made.
--- NOTE | 2019-01-25 08:54 | PC.NURSE ---
Addendum entered by Debby Ivey R.N. 01/28/19 07:56: Late Entry Heparin Drip stop time 184. Correction to stop time. Original Note: Late entry Heparin Drip stop time 182.
--- NOTE | 2019-02-13 20:32 | PC.NURSE ---
Late Entry NS stop time 1919.
== END 2019-01-04 22:52 | disposition expired ==
LOC: ED 20:22 → AC 20:44
PROVIDERS: Emergency Provider Emergency Medicine; PCP Family Medicine
DX: I26.92 Saddle embolus of pulmonary artery without acute cor pulmonale (principal)
CPT/HCPCS: 31500; 36591; 71045; 71275; 80053; 81015; 82550; 84484; 85025; 85379; 87086; 92950; 93005; 94770; 94799; 96361; 96374; 96375; 99283; 99291; J0171; J0330; J1644; J2405; J2997; Q9967